=== PATIENT | female | born 1945 | race Caucasian/White ===

== ENCOUNTER 2018-02-19 09:57 | Emergency (ER) | payer MEDICARE, OTHER ==
[2018-02-19] MEDS ORDERED: LORazepam 2 MG/ML INJ IM STA (11:06)
--- NOTE | 2018-02-19 11:31 | ED ---
Fall HPI - General Chief Complaint: Fall Stated Complaint: head lac Time Seen by Provider: 02/19/18 10:22 Source: RN notes reviewed, old records reviewed, Caregiver Mode of arrival: wheelchair - History of Present Illness Initial Comments: Is a 73-year-old female present emergency department today with complaint of a head injury. Patient is nonverbal, autistic and blind. Patient has been transferred from her wheelchair to another chair when the staff member that was helping her fell. She had the back of her head causing a 3 cm laceration. Caregivers report that she is at her baseline. Patient is quite agitated will not let people touch her. She has been hitting herself multiple times in the head. Family bleeding caregiver states that that is chronic. - Related Data Home Medications Medication Instructions Recorded Confirmed Divalproex Sodium [Divalproex 250 mg PO BID 10/09/15 02/19/18 Sodium ER] Levothyroxine Sodium [Synthroid] 50 mcg PO DAILY 10/09/15 02/19/18 Pantoprazole Sodium [Protonix] 20 mg PO BID 10/09/15 02/19/18 Sennosides-Docusate Sodium 1 tab PO HS 10/09/15 02/19/18 [Senokot-S] risperiDONE [RisperDAL] 2 mg PO HS 10/09/15 02/19/18 Atropine Ophth Soln 1% 5Ml [Isopto 2 drop LEFT EYE HS 02/19/18 02/19/18 Atropine 1% 5Ml] [place] Caps 260mg 260 mg PO AC-BRKFST 02/19/18 02/19/18 Cholecalciferol (Vitamin D3) 2,000 unit PO DAILY 02/19/18 02/19/18 [Vitamin D3] Eucalyptus Oil/Menthol/Camphor 1 applic TOPICAL HS 02/19/18 02/19/18 [Vicks Vaporub Ointment] Multivitamins, Thera [Multivitamin 1 tab PO DAILY 02/19/18 02/19/18 (formulary)] Nystatin 100,000Unit/gm Cream 1 applic TOPICAL BID 02/19/18 02/19/18 [Mycostatin Cream] V-R Antacid Susp 30 ml PO BID 02/19/18 02/19/18 Zinc Oxide [Desitin] 1 applic TOPICAL BID 02/19/18 02/19/18 prednisoLONE ACETATE 1% OPHTH 2 drops LEFT EYE HS 02/19/18 02/19/18 [Pred Forte 1%] Allergies Allergy/AdvReac Type Severity Reaction Status Date / Time No Known Allergies Allergy Verified 02/19/18 10:41 Review of Systems ROS Statement: Those systems with pertinent positive or pertinent negative responses have been documented in the HPI. ROS Other: All systems not noted in ROS Statement are negative. Past Medical History Past Medical History: GERD/Reflux, Seizure Disorder, Thyroid Disorder Additional Past Medical History / Comment(s): SMR , asbergers, History of Any Multi-Drug Resistant Organisms: None Reported Past Surgical History: No Surgical Hx Reported Past Psychological History: Anxiety Smoking Status: Never smoker Past Alcohol Use History: None Reported Past Drug Use History: None Reported General Exam - General Exam Comments Initial Comments: 73 year -year-old female. Patient is nonverbal. He is sitting in wheelchair. Hitting her head. Family states that she does this all the time. Limitations: altered mental status General appearance: alert, in no apparent distress Head exam: Present: normocephalic, normal inspection. Absent: atraumatic (3 cm laceration over the left parietal and occipital scalp.) Eye exam: Present: normal appearance, PERRL, EOMI. Absent: scleral icterus, conjunctival injection, periorbital swelling ENT exam: Present: normal exam, mucous membranes moist Neck exam: Present: normal inspection. Absent: tenderness, meningismus, lymphadenopathy Respiratory exam: Present: normal lung sounds bilaterally. Absent: respiratory distress, wheezes, rales, rhonchi, stridor Cardiovascular Exam: Present: regular rate, normal rhythm, normal heart sounds. Absent: systolic murmur, diastolic murmur, rubs, gallop, clicks GI/Abdominal exam: Present: soft, normal bowel sounds. Absent: distended, tenderness, guarding, rebound, rigid Extremities exam: Present: normal inspection, full ROM, normal capillary refill. Absent: tenderness, pedal edema, joint swelling, calf tenderness Back exam: Present: normal inspection Neurological exam: Present: alert, oriented X3, CN II-XII intact Psychiatric exam: Present: normal affect, normal mood Skin exam: Present: warm, dry, intact, normal color. Absent: rash Course Vital Signs 02/19/18 10:16 Pulse Rate 91 Respiratory 20 Rate O2 Sat by Pulse 100 Oximetry Procedures - Laceration Laceration #1 Site: scalp Size (cm): 3 Description: irregular Depth: simple, single layer Anesthetic Used: lidocaine 1% Anesthesia Technique: local infiltration Amount (mls): 6 Pre-repair: wound explored, irrigated extensively Type of Sutures: other (Rhonda) Number of Sutures: 6 Patient Tolerated Procedure: well, no complications Medical Decision Making - Medical Decision Making This patient's a 73-year-old female presents emergency Department chief complaint of a head injury. Patient was being transferred from her wheelchair to another chair. She fell back and hit her posterior scalp. She is a 3 cm laceration. Was thoroughly irrigated and closed with [address] brain and C -spine is completed after she was somewhat sedated with 1 mg of IM Ativan. Patient tolerated the sedation and CT well. CT shows no evidence of any acute abdomen or maladies. At this time Patient will be discharged home with close follow-up with primary care physician. Discussed suture care instructions. Family and caregivers understand treatment plan will comply. - Radiology Data Radiology results: report reviewed CT shows no acute fracture dislocation evident cervical spine. Straightening of the cervical spine with multilevel degenerative changes noted. There is no acute intracranial hemorrhage or midline shift. Mild to moderate diffuse cervical atrophy and chronic small vessel changes 3 demonstrate without significant changes. Disposition Clinical Impression: Head injury, Scalp laceration Disposition: HOME SELF-CARE Condition: Good Instructions: Fall Prevention for Older Adults (ED) Additional Instructions: Please return to the emergency room in 10 days to have rhonda removed. Watch with soap and water. Please use clean soap and water to clean the suture area to prevent scabbing over the top of your rhonda. Please watch for any signs of infection which may include but not limited to increased pain, swelling, redness , fever or chills. Please return to the emergency room if any signs of infection do occur. Please return to the emergency room for any other concerns or complications. Patient should be monitored there is any evidence of vomiting or changes in mental status Patient to return for further evaluation. Is patient prescribed a controlled substance at d/c from ED?: No When asked, does pt state using other controlled substances?: No If prescribed controlled substance>3 days was MAPS reviewed?: No If opioid is for acute pain is fill amount 7 days or less?: No If Rx opioid, was Start Talking consent form obtained?: No Referrals: Rudolph May MD [Primary Care Provider] - 1-2 days Time of Disposition: 13:30
[2018-02-19] MEDS ORDERED: LIDOCAINE 1% INJ 10MG/ML (20 ML MDV) SQ STA (12:29)
[2018-02-19] MEDS ORDERED: DIPH,PERTUS(ACELL)TETVAC-LF 0.5 ML VIAL IM ONE (12:29)
--- NOTE | 2018-02-19 13:09 | CT ---
EXAMINATION TYPE: CT brain cspine wo con DATE OF EXAM: 02/19/2018 COMPARISON: CT brain August 07, 2013 HISTORY: Fall with posterior head laceration and neck pain. CT DLP: 1107.1 mGycm. Automated Exposure Control for Dose Reduction was Utilized. TECHNIQUE: CT scan of the head and cervical spine are performed without contrast. FINDINGS: There is no acute intracranial hemorrhage or midline shift identified. There is ventricul ar and sulcal prominence consistent with diffuse cerebral atrophy there is low-attenuation in the per iventricular white matter. The visualized paranasal sinuses are clear. 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 The calvarium is intact. Cervical spine is visualized in its entirety from C1 through upper thoracic levels and demonstrates s traightened alignment without evidence of acute fracture or dislocation. Prevertebral soft tissue ap pears within normal limits. The C1-C2 articulation is within normal limits on the coronal images. Vertebral body heights are maintained. There is advanced disc space narrowing C3-C4 level with vacuum disc phenomenon. There is moderate to advanced disc space narrowing with moderate anterior spurring C6-C7 level. Spinal canal is grossly preserved. Review of axial images shows multilevel uncovertebral facet degenerative changes bilaterally contributing to multilevel neural foraminal narrowing. Lung a pices are clear. IMPRESSION: 1. There is no acute fracture or dislocation evident in the cervical spine. Straightening of cervical spine with multilevel degenerative changes noted. 2. No acute intracranial hemorrhage or midline shift is seen. There is mild to moderate diffuse cereb ral atrophy and chronic small vessel ischemic change redemonstrated without significant interval [facility] [facility].
[2018-02-19 13:39] VITALS: BP 144/75; PULSE 74; RESP 18
== END 2018-02-19 13:42 | disposition home or self-care (01) ==
LOC: EEVIPCON 09:57 → EC 09:57
DX: S01.01XA Laceration without foreign body of scalp, initial encounter (principal); M47.812 Spondylosis without myelopathy or radiculopathy, cervical region; G31.9 Degenerative disease of nervous system, unspecified; I99.8 Other disorder of circulatory system; R41.82 Altered mental status, unspecified; F84.0 Autistic disorder; H54.7 Unspecified visual loss; R45.1 Restlessness and agitation; G40.909 Epilepsy, unspecified, not intractable, without status epilepticus; K21.9 Gastro-esophageal reflux disease without esophagitis; E07.9 Disorder of thyroid, unspecified; Z79.52 Long term (current) use of systemic steroids; Z79.899 Other long term (current) drug therapy; Z23 Encounter for immunization; W17.89XA Other fall from one level to another, initial encounter; Y93.89 Activity, other specified
CPT/HCPCS: 72125; 70450; 90715; 99284; 12002; 96372; 90471; J2060; J2001

== ENCOUNTER → 2020-06-10 | Outpatient (CLI) | payer MEDICARE, OTHER ==
[2020-06-10 11:43] LABS: Mean Platelet Volume 7.5; Platelet Count 189 k/uL (150-450)
[2020-06-10 20:10] LABS: Valproic Acid (Depakene) 49.5 ug/mL (50.0-100.0)
== END | disposition home or self-care (01) ==
LOC: LABWHC1 09:50
PROVIDERS: ATTEND Psychiatry & Neurology Neurology
DX: G40.209 Localization-related (focal) (partial) symptomatic epilepsy and epileptic syndromes with complex partial seizures, not intractable, without status epilepticus (principal)
CPT/HCPCS: 36415; 80164; 84450; 84460; 85049

== ENCOUNTER → 2020-10-12 | Outpatient (CLI) | payer MEDICARE, OTHER ==
[2020-10-12 16:02] LABS: Basophils # (A) 0.02 X 10*3/uL (0.00-0.10); Basophils % (A) 0.4 %; Eosinophils # (A) 0.01 X 10*3/uL (0.04-0.35); Eosinophils % (A) 0.2 %; HCT 41.6 % (37.2-46.3); HGB 13.3 g/dL (12.0-15.0); Lymphocytes # (A) 1.12 X 10*3/uL (0.90-5.00); Lymphocytes % (A) 21.4 %; MCH 31.7 pg (27.0-32.0); Mean Platelet Volume 10.7 fL (9.5-12.2); Monocytes # (A) 0.69 X 10*3/uL (0.20-1.00); Monocytes % (A) 13.2 %; Neutrophils # (A) 3.37 X 10*3/uL (1.80-7.70); Neutrophils % (A) 64.4 %; Platelet Count 157 X 10*3/uL (140-440); RDW 13.9 % (11.5-14.5); WBC 5.23 X 10*3/uL (4.50-10.00)
[2020-10-13 05:33] LABS: Valproic Acid (Depakene) 60.6 ug/mL (50.0-100.0)
== END | disposition home or self-care (01) ==
LOC: LABWHC1 09:05
PROVIDERS: ATTEND Psychiatry & Neurology Neurology
DX: G40.209 Localization-related (focal) (partial) symptomatic epilepsy and epileptic syndromes with complex partial seizures, not intractable, without status epilepticus (principal)
CPT/HCPCS: 36415; 80164; 84450; 84460; 85025

== ENCOUNTER → 2021-04-06 | Outpatient (CLI) | payer MEDICARE, OTHER ==
[2021-04-06 14:50] LABS: Basophils # (A) 0.04 X 10*3/uL (0.00-0.10); Basophils % (A) 0.8 %; Eosinophils # (A) 0.03 X 10*3/uL (0.04-0.35); Eosinophils % (A) 0.6 %; HCT 37.7 % (37.2-46.3); HGB 12.1 g/dL (12.0-15.0); Lymphocytes # (A) 1.15 X 10*3/uL (0.90-5.00); Lymphocytes % (A) 24.1 %; MCH 31.7 pg (27.0-32.0); MCHC 32.1 g/dL (32.0-37.0); MCV 98.7 fL (80.0-97.0); Mean Platelet Volume 9.9 fL (9.5-12.2); Monocytes # (A) 0.43 X 10*3/uL (0.20-1.00); Neutrophils # (A) 3.12 X 10*3/uL (1.80-7.70); Neutrophils % (A) 65.3 %; Platelet Count 197 X 10*3/uL (140-440); RBC 3.82 X 10*6/uL (4.10-5.20); RDW 14.5 % (11.5-14.5); WBC 4.78 X 10*3/uL (4.50-10.00)
[2021-04-06 16:30] LABS: Hemoglobin A1C 4.4 % (4.0-6.0)
[2021-04-07 08:42] LABS: Valproic Acid (Depakene) 59.9 ug/mL (50.0-100.0)
[2021-04-07 09:17] LABS: African American GFR (CKD) 104.1 (60.0-200.0); Albumin 4.2 g/dL (3.80-4.90); Albumin/Globulin Ratio 1.62 (1.60-3.17); Anion Gap 19.6 mmol/L (4.00-12.00); Calcium 9.6 mg/dL (8.7-10.3); Carbon Dioxide 19.4 mmol/L (21.6-31.8); Globulin 2.6 g/dL (1.6-3.3); Non-African American GFR(CKD) 89.8 (60.0-200.0); Potassium 4.2 mmol/L (3.5-5.5); Total Bilirubin 0.3 mg/dL (0.3-1.2); Total Protein 6.8 g/dL (6.2-8.2)
[2021-04-07 09:26] LABS: T4, Free (Free Thyroxine) 1.7 ng/dL (0.80-1.80)
== END | disposition home or self-care (01) ==
LOC: LABWHC1 09:22
PROVIDERS: ATTEND Psychiatry & Neurology Psychiatry
DX: G40.209 Localization-related (focal) (partial) symptomatic epilepsy and epileptic syndromes with complex partial seizures, not intractable, without status epilepticus (principal); Z79.899 Other long term (current) drug therapy
CPT/HCPCS: 36415; 80053; 80164; 83036; 84439; 84443; 85025

== ENCOUNTER → 2021-12-22 | Outpatient (CLI) | payer MEDICARE, OTHER ==
[2021-12-22 19:18] LABS: Valproic Acid (Depakene) 58.6 ug/mL (50.0-100.0)
== END | disposition home or self-care (01) ==
LOC: LABWHC1 09:05
PROVIDERS: ATTEND Psychiatry & Neurology Neurology
DX: G40.209 Localization-related (focal) (partial) symptomatic epilepsy and epileptic syndromes with complex partial seizures, not intractable, without status epilepticus (principal)
CPT/HCPCS: 36415; 80164; 84450; 84460

== ENCOUNTER → 2022-05-04 | Outpatient (CLI) | payer MEDICARE, OTHER ==
[2022-05-04 16:00] LABS: HCT 39.2 % (37.2-46.3); HGB 12.2 g/dL (12.0-15.0); MCH 32.7 pg (27.0-32.0); MCHC 31.1 g/dL (32.0-37.0); MCV 105.1 fL (80.0-97.0); Mean Platelet Volume 11.4 fL (9.5-12.2); NRBC Per 100 WBC 0 /100 WBCS (0.0-0.0); Platelet Count 188 X 10*3/uL (140-440); RBC 3.73 X 10*6/uL (4.10-5.20); RDW 14.5 % (11.5-14.5); WBC 6.96 X 10*3/uL (4.50-10.00)
[2022-05-04 16:55] LABS: Acanthocytes 2+; Basophils # (A) 0.04 X 10*3/uL (0.00-0.10); Basophils % (A) 0.6 %; Eosinophils # (A) 0.03 X 10*3/uL (0.04-0.35); Eosinophils % (A) 0.4 %; Immature Grans, Automated 0.9 %; Lymphocytes # (A) 1.32 X 10*3/uL (0.90-5.00); Monocytes # (A) 0.71 X 10*3/uL (0.20-1.00); Monocytes % (A) 10.2 %; Neutrophils % (A) 68.9 %
== END | disposition home or self-care (01) ==
LOC: LABWHC1 09:17
PROVIDERS: ATTEND Psychiatry & Neurology Neurology
DX: G40.209 Localization-related (focal) (partial) symptomatic epilepsy and epileptic syndromes with complex partial seizures, not intractable, without status epilepticus (principal)
CPT/HCPCS: 36415; 80164; 84450; 84460; 85025